=== PATIENT | female | born 1975 | race Two or more races ===

== ENCOUNTER 2016-06-04 07:17 | Inpatient (IN) | payer MEDICAID ==
--- NOTE | 2016-06-03 14:53 | HP ---
FATOUMATA DARDEN DATE OF SCHEDULED SURGERY: June 04, 2016 PREOPERATIVE DIAGNOSES: Uterine fibroids and right adnexal mass. PROCEDURE PLANNED: A total abdominal hysterectomy and a right salpingo-oophorectomy. HISTORY: The patient is a 40-year-old 3, para 3, woman with a last menstrual period of four days ago. For the last three months she has been having periods two times a month. Her exam by her primary care showed a mass. She had an ultrasound done which showed a 5.9 cm posterior fibroid and 10 cm right adnexal cyst. She denies any pain. test is negative. PAST MEDICAL HISTORY: She has a history of hypertension. PAST SURGICAL HISTORY: She has had a bilateral tubal ligation. ALLERGIES: NONE. MEDICATIONS: Lisinopril 10 mg a day. FAMILY HISTORY: Negative. SOCIAL HISTORY: Patient is Irish speaking. Does not smoke. Lives with her and children. REVIEW OF SYSTEMS: Patient denies any fever, chills, constipation, diarrhea, dysuria, hematuria. PHYSICAL EXAMINATION: GENERAL: She is a healthy-appearing woman. VITAL SIGNS: Stable, afebrile. HEENT: Normal. LUNGS: Clear. HEART: Normal S1 and S2. ABDOMEN: Soft, nontender. PELVIC: External genitalia and vagina are normal. The cervix reveals no motion tenderness. The uterus is 10 to 12 week size. Adnexa, she has a definite mass and fullness on the right side. Left side is normal. IMPRESSION: The impression is a patient with symptomatic fibroid and a large cyst on the right ovary. PLAN: Plan is to do a total abdominal hysterectomy with a removal of the cyst with possible removal of the ovary.
[2016-06-04] MEDS ORDERED: LACTATED RINGERS 1,000 ML ONE (09:29)
[2016-06-04] MEDS ORDERED: CEFAZOLIN SODIUM 2 GRAM PREMIX 100 ML IV ONE (09:30)
[2016-06-04] MEDS ORDERED: IV START KIT ONE (09:30)
[2016-06-04] MEDS ORDERED: MIDAZOLAM HCL 5 MG/5 ML VIAL ONE (10:44)
[2016-06-04] MEDS ORDERED: KETOROLAC TROMETHAMINE 30 MG/ML 1 ML VIAL ONE ×2 (10:44→11:22)
[2016-06-04] MEDS ORDERED: ONDANSETRON 4 MG/2ML 2 ML VIAL ONE (10:44)
[2016-06-04] MEDS ORDERED: PROPOFOL 40 ML IV ONE (10:44)
[2016-06-04] MEDS ORDERED: KETAMINE HCL UD SYRINGE 100 MG/2 ML IV ONE (10:44)
[2016-06-04] MEDS ORDERED: FENTANYL 100 MCG/2 ML VIAL ONE (10:44)
[2016-06-04] MEDS ORDERED: DEXAMETHASONE SOD PHOS 4 MG/1 ML VIAL ONE (10:44)
[2016-06-04] MEDS ORDERED: FAMOTIDINE 10 MG/ML 2ML VIAL ONE (11:46)
[2016-06-04] MEDS ORDERED: SPINAL PROCEDURAL TRAY 1 EACH ONE (12:13)
[2016-06-04] MEDS ORDERED: MORPHINE SULFATE (DURAMORPH) 1 MG/ML 10ML AMP ONE (12:14)
[2016-06-04] MEDS ORDERED: ONDANSETRON 4 MG/2ML 2 ML VIAL IV PRN ×2 (12:48→14:39)
[2016-06-04] MEDS ORDERED: OXYCODONE/ACETAMINOPHEN 5/325 MG TABLET PO PRN (12:48)
[2016-06-04] MEDS ORDERED: NALOXONE HCL 0.4 MG/ML VIAL IV PRN (12:48)
[2016-06-04] MEDS ORDERED: FENTANYL 100 MCG/2 ML VIAL IV PRN (12:48)
[2016-06-04] MEDS ORDERED: PROMETHAZINE HCL 25 MG/ML VIAL IM PRN (12:48)
[2016-06-04] MEDS ORDERED: MORPHINE SULFATE 2 MG/ML SYRINGE IV PRN (12:48)
[2016-06-04] MEDS ORDERED: HYDROMORPHONE HCL 1 MG/ML SYRINGE IV PRN ×2 (12:48)
[2016-06-04] MEDS ORDERED: EPHEDRINE SULFATE 50 MG/ML 1ML VIAL IV PRN (12:48)
[2016-06-04] MEDS ORDERED: EPHEDRINE SULFATE UD SYR 25 MG 25 MG/5 ML SYRINGE IV ONE ×2 (12:54→12:55)
[2016-06-04] MEDS ORDERED: LACTATED RINGERS 1,000 ML IV SCH (13:00)
[2016-06-04] MEDS ORDERED: SURGICEL 3X4 1 EACH PACKET ONE (14:31)
[2016-06-04] MEDS ORDERED: ACETAMINOPHEN 325 MG TABLET PO PRN (14:39)
[2016-06-04] MEDS ORDERED: DIPHENHYDRAMINE HCL 50 MG/1 ML VIAL IV PRN (14:39)
[2016-06-04] MEDS ORDERED: MAGNESIUM HYDROXIDE/AL HYDROX 30 ML UDCUP PO PRN (14:39)
[2016-06-04] MEDS ORDERED: BLISTEX LIPSTICK 1 EACH TP PRN (14:39)
[2016-06-04] MEDS ORDERED: MENTHOL/CETYLPYRD 1 EACH LOZENGE PO PRN (14:39)
[2016-06-04] MEDS ORDERED: DOCUSATE SODIUM 100 MG CAPSULE PO PRN (14:39)
[2016-06-04] MEDS ORDERED: MAG HYDROX/AL HYDROX/SIMETH 30 ML UDCUP PO PRN (14:39)
[2016-06-04 15:25] VITALS: BMI 33.2
[2016-06-04] MEDS ORDERED: PUMP TUBING ONE ×2 (15:46→17:34)
[2016-06-04] MEDS ORDERED: PROMETHAZINE HCL 12.5 MG in SODIUM CHLORIDE 0.9% 50 ML IV PRN (17:03)
[2016-06-04] MEDS: D5LR 1,000 ML IV SCH ×2 (17:27→18:10)
[2016-06-05] MEDS: D5LR 1,000 ML IV SCH ×4 (00:42→23:55)
[2016-06-05 05:40] LABS: HEMOGLOBIN 9.9 gm/l (12.0-16.0); MEAN CELL VOLUME 87.6 fl (81.0-99.0); MEAN CORPUSCULAR HEMOGLOBIN 29.9 pg (27.0-31.0); MEAN CORPUSCULAR HGB CONC 34.1 g/dl (33.0-37.0); RED CELL DISTRIBUTION WIDTH 12.4 % (11.5-14.5)
--- NOTE | 2016-06-05 08:18 | OP ---
Melody Douglas DATE: 06/04/2016 PREOPERATIVE DIAGNOSIS: Uterine fibroids and right adnexal mass. POSTOPERATIVE DIAGNOSIS: Uterine fibroids and a right hydrosalpinx. PROCEDURE PERFORMED: A total abdominal hysterectomy and right salpingectomy. SURGEON: Onur Swain M.D. NEW ACCOUNTS CLERK: Mahi Bernal. PROCEDURE: The patient was taken the operating room and spinal anesthesia was administered. She was placed in the supine position prepped and draped in the usual sterile fashion. A pfannenstiel skin incision with a scalpel. A second scalpel was used to reach the fascia. The fascial incision was extended with Woo scissors. The perineum was entered bluntly and extended. A self retaining retractor was inserted and the bowel was displaced with laparotomy packs. The uterus was about 14 weeks size with a large fibroid off the posterior aspect of the fundus. Both ovaries were normal, but she had a large 5 cm diameter hydrosalpinx on the right side. The stalk of the hydrosalpinx was almost crossed clamped, cut, suture ligated, and closed. The round ligaments were then bilaterally clamped, cut, and ligated with 0 Vicryl and the anterior broad ligament opened bilateral and the bladder pushed downwards. An avascular window was created in the posterior leaf of the broad ligament on the right side and the uteroovarian ligament clamped, cut, and doubly ligated with 0 Vicryl. An avascular window was created in the posterior leaf of the broad ligament on the left side and the uteroovarian ligament clamped, cut, and double ligated with 0 Vicryl. Uterine vessels were bilaterally skeletonized and clamped, cut, and ligated with 0 Vicryl. There were large vessels. Progressive bites of tissue were taken on each of the cervix with each bite of tissue being clamped, cut, and ligated with 0 Vicryl. The vagina was entered with a scalpel just beneath the cervix and the cervix and uterus were removed from the body with scissors. There was a lot of oozing around the cuff. The two angles of the vagina with closed with modified [place] suture technique of 0 Vicryl. The cuff was then run with a running locking suture of 0 Vicryl. Several of figure of eight sutures were then placed around the cuff to close cover over any bleeding areas. Hemostasis was finally checked and found to be good. Irrigation was performed and hemostasis was again found to be good. A large piece of Surgicel was placed around the cuff and then pelvic floor was reperitonealized with a running suture of 2-0 Vicryl. All instrument and laparotomy packs were removed. The anterior peritoneum was closed with a running suture of 2-0 Vicryl. The fascia was closed with two separate running sutures of 0 Vicryl and skin was closed with jose martin. The patient tolerated the procedure well and was taken to the recovery room in stable condition. All sponge, instrument, and needle counts were correct. Estimated blood loss 250 mL. JOB: [id number]
--- NOTE | 2016-06-05 11:32 | PDOC43 ---
- Subjective Subjective: Reports Pain Tolerable, Reports Tolerating PO Clear - Objective Vital Signs Temperature 97.9 F 06/05/16 07:00 Pulse Rate 74 06/05/16 07:00 Respiratory Rate 16 06/05/16 07:00 Blood Pressure 109/70 06/05/16 07:00 O2 Saturation by Pulse Oximetry 97 06/05/16 07:00 Oxygen Delivery Method Nasal Cannula Oxygen Flow Rate 2 Laboratory 06/05/16 05:15 06/05/16 05:15 RBC 3.31 L Active Medication Orders Category Date Time Status Acetaminophen [Tylenol] Med 06/04/16 14:39 Active 325 - 650 mg PO Q4H PRN D5lr 1,000 ml Med 06/04/16 14:39 Active IV 125 mls/hr Diphenhydramine HCl [Benadryl] Med 06/04/16 14:39 Active 25 mg IV Q6H PRN Docusate Sodium [Colace] Med 06/04/16 14:39 Active 100 mg PO BID PRN Ephedrine Sulfate Med 06/04/16 12:48 Active 5 - 10 mg IV Q5M PRN Hydromorphone HCl [Dilaudid] Med 06/04/16 12:48 Active 0.5 mg IV Q5M PRN Lip Kenneth [Blistex] Med 06/04/16 14:39 Active 1 each TP PRN PRN Magnesium Hydroxide/Al Hydrox [Maalox] Med 06/04/16 14:39 Active 30 ml PO Q4H PRN Magnesium/Al Hydrox/Simeth [Maalox Plus] Med 06/04/16 14:39 Active 30 ml PO Q4H PRN Menthol/Cetylpyridinium [Cepacol] Med 06/04/16 14:39 Active 1 each PO PRN PRN Morphine Sulfate Med 06/05/16 14:04 Active 1 - 2 mg IV Q1H PRN Morphine Sulfate Med 06/04/16 12:48 Active 1 - 5 mg IV Q1H PRN Naloxone HCl [Narcan] Med 06/04/16 12:48 Active 0.04 - 0.4 mg IV Q5M PRN Ondansetron 4 mg/2ml Vial [Zofran] Med 06/04/16 14:39 Active 4 mg IV Q4H PRN Oxycodone HCl/Acetaminophen [Percocet 5/325] Med 06/04/16 12:48 Active 1 - 2 tab PO Q4H PRN Oxycodone HCl/Acetaminophen [Percocet 5/325] Med 06/05/16 14:04 Active 1 - 2 tab PO Q4H PRN Promethazine HCl [Phenergan] 12.5 mg Med 06/04/16 17:03 Active Sodium Chloride 0.9% 50 ml IV Q4H Sodium Chloride 0.9% Flush [Normal Saline 10ml Flush] Med 06/04/16 14:39 Active 10 - 50 ml IV PRN PRN Sodium Chloride 0.9% Flush [Normal Saline 10ml Flush] Med 06/05/16 01:00 Active 10 ml IV Q8HR Intake and Output 06/03/16 06/04/16 06/05/16 23:59 23:59 23:59 Intake Total 2100 1617 Output Total 845 550 Balance 1255 1067 General: Afebrile Abdomen: Soft Wound LOCAL TRUCK DRIVER: Dressing Clean/Dry/Intact Genitourinary: Normal Female Genitalia - Disposition: Disposition: Stable
[2016-06-05] MEDS ORDERED: OXYCODONE/ACETAMINOPHEN 5/325 MG TABLET PO PRN (14:04)
[2016-06-05] MEDS ORDERED: MORPHINE SULFATE 2 MG/ML SYRINGE IV PRN (14:04)
[2016-06-06] MEDS: D5LR 1,000 ML IV SCH (08:06)
--- NOTE | 2016-06-06 12:50 | PDOC43 ---
- Subjective Subjective: Reports Pain Tolerable, Reports Tolerating PO Regular - Objective Vital Signs Temperature 98 F 06/06/16 08:53 Pulse Rate 88 06/06/16 08:53 Respiratory Rate 16 06/06/16 09:00 Blood Pressure 120/77 06/06/16 08:53 O2 Saturation by Pulse Oximetry 99 06/06/16 08:53 Oxygen Delivery Method Room Air Oxygen Flow Rate 0 Laboratory 06/05/16 05:15 Active Medication Orders Category Date Time Status Acetaminophen [Tylenol] Med 06/04/16 14:39 Active 325 - 650 mg PO Q4H PRN D5lr 1,000 ml Med 06/04/16 14:39 Active IV 125 mls/hr Diphenhydramine HCl [Benadryl] Med 06/04/16 14:39 Active 25 mg IV Q6H PRN Docusate Sodium [Colace] Med 06/04/16 14:39 Active 100 mg PO BID PRN FERROUS SULFATE (65 Fe) [Ferrous Sulfate] Med 06/06/16 13:00 Ordered 325 mg PO DAILY Hydromorphone HCl [Dilaudid] Med 06/04/16 12:48 Active 0.5 mg IV Q5M PRN Lip [place] [Blistex] Med 06/04/16 14:39 Active 1 each TP PRN PRN Magnesium Hydroxide/Al Hydrox [Maalox] Med 06/04/16 14:39 Active 30 ml PO Q4H PRN Magnesium/Al Hydrox/Simeth [Maalox Plus] Med 06/04/16 14:39 Active 30 ml PO Q4H PRN Menthol/Cetylpyridinium [Cepacol] Med 06/04/16 14:39 Active 1 each PO PRN PRN Morphine Sulfate Med 06/05/16 14:04 Active 1 - 2 mg IV Q1H PRN Ondansetron 4 mg/2ml Vial [Zofran] Med 06/04/16 14:39 Active 4 mg IV Q4H PRN Oxycodone HCl/Acetaminophen [Percocet 5/325] Med 06/05/16 14:04 Active 1 - 2 tab PO Q4H PRN Promethazine HCl [Phenergan] 12.5 mg Med 06/04/16 17:03 Active Sodium Chloride 0.9% 50 ml IV Q4H Sodium Chloride 0.9% Flush [Normal Saline 10ml Flush] Med 06/04/16 14:39 Active 10 - 50 ml IV PRN PRN Sodium Chloride 0.9% Flush [Normal Saline 10ml Flush] Med 06/05/16 01:00 Active 10 ml IV Q8HR Intake and Output 06/04/16 06/05/16 06/06/16 23:59 23:59 23:59 Intake Total 2100 4281 1681 Output Total 845 2200 1925 Balance 1255 2081 -244 General: Afebrile Abdomen: Soft Wound 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
[2016-06-06] MEDS ORDERED: FERROUS SULFATE (65 Fe) 325 MG TABLET PO SCH (13:00)
[2016-06-06 13:03] VITALS: BP 128/87
--- NOTE | 2016-06-09 11:27 | DS ---
Melody Douglas DATE OF ADMISSION: 06/04/2016 DATE OF DISCHARGE: 06/06/2016 ADMISSION DIAGNOSES: 1. Uterine fibroids. 2. Right adnexal mass. DISCHARGE DIAGNOSES: 1. Uterine fibroids. 2. Right hydrosalpinx. PROCEDURE PERFORMED IN THE HOSPITAL: A total abdominal hysterectomy and a right salpingectomy. HISTORY: The patient is a 40-year-old 3, para 3 with an last menstrual period four days prior to admission. For the last three months she has been having two periods a month. Her exam showed a pelvic mass and an ultrasound showed a 5.9 cm posterior fibroid and a 10 cm right adnexal cyst. The patient was admitted and taken to the operating room where she underwent a total abdominal hysterectomy for large fibroids and the right tube was a large hydrosalpinx which was removed without incident. Both ovaries were normal. Postoperatively the patient did well. She remained afebrile, ambulating without difficulty, and tolerating her diet. She wanted to go home on the second postoperative day. She was discharged home. She will return to see me in three more days to have her jose martin removed. She was given a prescription for Percocet and Colace. JOB: [id number]
--- NOTE | 2016-06-09 11:54 | SURGPATH ---
[facility] [address] [place] [id number] Patient Name: FATOUMATA DARDEN MR#: [id number] : 1975 Gender: F Specimen #: [id number] Collected: 06/05/2016 Received: 06/06/2016 Reported: 06/09/2016 Submitting Phys: NESTOR ORR Copy To Phys: [facility] Clinical History / Pre-Operative Diagnosis: Uterine fibroids, right adnexal mass Specimen Source / Surgical Procedure Performed: #1 right fallopian tube, #2 uterus and cervix Interpretation: 1. RIGHT FALLOPIAN TUBE, SALPINGECTOMY: - BENIGN PARATUBAL CYST 2. UTERUS, HYSTERECTOMY: - CERVIX EXHIBITING NO PATHOLOGIC ABNORMALITIES - BENIGN SECRETORY TYPE ENDOMETRIUM - MYOMETRIUM WITH INFARCTED LEIOMYOMA Electronically Signed Out Sergio Garrett M.D. Gross Description: 1. The specimen is received in formalin labeled with the patient's name and "right fallopian tube". The specimen consists of a 120 g, 10.5 x 5.0 x 4.5 cm cyst with a smooth serosa. Sectioning reveals a unilocular serous cyst with a smooth lining and thin-wall. There is a possible tube embedded in the wall and this may be a paratubal cyst. 1A-B. software support representative 2. The specimen is received in formalin labeled with the patient's name and "uterus". The specimen consists of a 9.0 x 8.0 x 7.0 cm, 263 g enlarged and distorted uterus with attached 3.5 cm cervix with patent os. There is detached soft tissue in the container aggregating 3.0 x 2.0 x 1.0 cm. The uterine serosa is smooth. The prather-pink soft endometrium is up to 0.5 cm. The uterus is distorted by a 6 cm red to brown-green hemorrhagic or necrotic soft to rubbery nodule. Bakery Demonstrator tissue is submitted. 2A. separate soft tissue fragments 2B. posterior cervix 2C. anterior cervix 2D.-E. partial thickness anterior uterus 2F. full thickness posterior uterus 2G.-H. posterior nodule Jackelin Anguiano [place] Microscopic Description: 1. The sections show a cystic space lined by low cuboidal epithelium without cytologic atypia or architectural complexity. The cyst is adjacent to a benign fallopian tube. 2. Multiple software support representative sections of the hysterectomy specimen are examined. The cervix shows benign squamous and glandular epithelium without dysplasia. The endometrium shows secretory glands without hyperplasia or atypia. The myometrium shows a nodular lesion exhibiting extensive necrosis and areas of calcification in the lesion has a circumscribed border. Atypical features are not identified. 1: 27795 2: 58539 Q50.4 D25.1
== END 2016-06-06 15:15 | disposition home or self-care (01) | DRG 743 ==
LOC: OR 09:29 → MS 14:53
PROVIDERS: ADMIT Obstetrics & Gynecology; ATTEND Obstetrics & Gynecology
PROC: 0UT90ZZ Resection of Uterus, Open Approach (ICD-10-PCS; principal; 2016-06-04)
PROC: 0UTC0ZZ Resection of Cervix, Open Approach (ICD-10-PCS; 2016-06-04)
PROC: 0UB50ZZ Excision of Right Fallopian Tube, Open Approach (ICD-10-PCS; 2016-06-04)
DX: D25.9 Leiomyoma of uterus, unspecified (principal); I10 Essential (primary) hypertension